=== PATIENT | male | born 1980 | race Caucasian/White ===

== ENCOUNTER 2017-01-13 15:45 | Emergency (ER) | payer OTHER ==
[2017-01-13] MEDS ORDERED: HYDROMORPHONE HCL INJ/PF 2 MG/ML AMPULE IM ONE (17:29)
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
[2017-01-13] MEDS ORDERED: OXYCODONE-ACETAMINOPHEN 5-325 MG TABLET PO ONE (18:33)
[2017-01-13 20:10] VITALS: BP 136/98
[2017-01-13] MEDS ORDERED: HYDROCODONE/ACETAMINOPHEN 5-325 MG 6 TAB/DSPK PO PRN (20:16)
== END 2017-01-13 20:23 | disposition home or self-care (01) ==
LOC: ER 15:45
DX: S52.124A Nondisplaced fracture of head of right radius, initial encounter for closed fracture (principal); V14 Pedal cycle rider injured in collision with heavy transport vehicle or bus; V13.9XXA Unspecified pedal cyclist injured in collision with car, pick-up truck or van in traffic accident, initial encounter; M25.521 Pain in right elbow; R07.9 Chest pain, unspecified; F17.200 Nicotine dependence, unspecified, uncomplicated; Z88.0 Allergy status to penicillin
CPT/HCPCS: 29105; 99284; 96372; 71020; 73080; 73090; 73130; 73060; 71120; J1170